=== PATIENT | male | born 1965 | race Caucasian/White ===

== ENCOUNTER 2021-07-13 09:15 | Emergency (ER) | payer OTHER ==
[2021-07-13 09:27] VITALS: BP 137/87; PULSE 54; TEMP 97.9; BMI 29.1
== END 2021-07-13 10:27 | disposition home or self-care (01) ==
LOC: FER 09:15
DX: S60.222A Contusion of left hand, initial encounter (principal); W23.1XXA Caught, crushed, jammed, or pinched between stationary objects, initial encounter; Y92.9 Unspecified place or not applicable
CPT/HCPCS: 73130-TC-LT-FY; 99284-25